=== PATIENT | male | born 1975 | race Caucasian/White ===

== ENCOUNTER 2020-09-19 00:48 | Inpatient (IN) | payer SELFPAY ==
[2020-09-19] MEDS ORDERED: Octreotide Acetate 50 MCG/ML AMP ONE (01:20)
[2020-09-19] MEDS ORDERED: Pantoprazole 40 MG VIAL ONE (01:20)
[2020-09-19] MEDS ORDERED: Octreotide Acetate 1,250 MCG in Sodium Chloride 0.9% 250 ML 250 ML IVPB SCH ×2 (01:30→10:15)
[2020-09-19] MEDS ORDERED: Pantoprazole 80 MG, Admixture Fee 1 EACH in Sodium Chloride 0.9% 100 ML IVPB SCH (01:30)
[2020-09-19 01:46] LABS: Hemoglobin 4.7 g/dL (14.0-18.0); Mean Corpuscular Hemoglobin 26.1 pg (27.0-31.0); Mean Corpuscular Volume 84.1 fL (78.0-98.0); Mean Platelet Volume 8.8 fL (7.4-10.4); Platelet Count 488 thou/uL (130-400); White Blood Cell (WBC) Count 20.7 thou/uL (4.8-10.8)
[2020-09-19 01:47] LABS: INR-International Normal Ratio 1.1; PTT 30.3 sec (22.9-36.1); Prothrombin Time 14.8 sec (12.0-14.7)
[2020-09-19 02:05] LABS: ALT (SGPT) 9 U/L (8-55); AST (SGOT) 17 U/L (5-34); Albumin 2.4 g/dL (3.5-5.0); Alkaline Phosphatase 76 U/L (40-110); Anion Gap 16 mmol/L (10-20); BUN (Urea Nitrogen) 15 mg/dL (8.9-20.6); Band 7 % (5-11); Bilirubin, Total 0.3 mg/dL (0.2-1.2); Calc. Creatinine Clearance 0 mL/min (70-130); Calcium 7.8 mg/dL (7.8-10.44); Carbon Dioxide 21 mmol/L (22-29); Chloride 105 mmol/L (98-107); Estimated GFR-MDRD Greater than 90; Globulin 2.3 g/dL (2.4-3.5); Glucose 129 mg/dL (70-105); Hypochromia MODERATE=16-30 cells (100X) (0-5/hpf); Lipase 181 U/L (8-78); Lymphocytes 15 % (21-51); MDiff Complete? YES; Monocytes 7 % (0-10); Neutrophil 71 % (42-75); Platelet Morphology Comment Appears Increased; Polychromasia MODERATE = 3-4 cells (100X) (0-2/hpf); Protein, Total 4.7 g/dL (6.0-8.3); Reflex for Review?? YES; Sodium 139 mmol/L (136-145)
--- NOTE | 2020-09-19 04:37 | PDOC.HHP ---
Hospitalist HPI - History of Present Illness gi bleeding History of Present Illness: Case of an 44y/o male with no pmhx of chronic conditions who comes to hospital due to GI bleeding. Patient states he was on his usual state of health until 1 week ago when he started with GI bleeding, patient states was a mixture of melena and hematochezia with associated lightheadedness. he stated he was hospitalize due to a HG of 2. He underwent an EGD and colonoscopy and they found nothing at that time and was discharge home after 6 prbcs. patient comes today after a similar presentation. he states that in afternoon while driving home he had an episode of seizure witness by his , has no hx of seizures, they got home and patient felt lightheaded and decided to take a nap. patient refers he was awaken due to a warm feeling in his legs and noted that he had what he described a massive amount of blood in his leg which was again a mixture of bright red blood and melena for which he decided to come to hospital for evaluation. At ed patient was evaluated and found with a HG of 4.7 for which hospitalist was called for further evaluation and management. patient denies fever nausea vomiting abdominal or chest pain does refer some chills Hospitalist ROS - Review of Systems All other systems reviewed; all pertinent +/- noted in HPI/Subj Hospitalist History - Past Surgical History Past Surgical History: reports: no pertinent history - Family History Family History: reports: no pertinent history - Social History Smoking Status: Never smoker Alcohol: reports: Occassional Drugs: reports: none Living Situation: With Family - Exam General Appearance: NAD, awake alert Eye: PERRL, anicteric sclera ENT: normocephalic atraumatic, no oropharyngeal lesions Neck: supple, symmetric, no JVD Heart: RRR, no murmur, no gallops, no rubs Respiratory: CTAB, no wheezes, no rales, no ronchi Gastrointestinal: soft, non-tender, non-distended, normal bowel sounds, no palpable masses, no hepatomegaly, no splenomegaly Extremities: no cyanosis, no clubbing, no edema Skin: normal turgor, no lesions, no rashes Neurological: cranial nerve grossly intact, normal sensation to touch, no weakness Musculoskeletal: normal tone, normal strength, no muscle wasting Psychiatric: normal affect, normal behavior, A&O x 3 Hospitalist Results - Labs Result Diagrams: 11/29/20 01:14 09/19/20 01:14 Lab results: WBC 20.7 thou/uL (4.8-10.8) H 09/19/20 01:14 Hgb 4.7 g/dL (14.0-18.0) L* 09/19/20 01:14 Hct 15.1 % (42.0-52.0) L 09/19/20 01:14 MCV 84.1 fL (78.0-98.0) 09/19/20 01:14 Plt Count 488 thou/uL (130-400) H 09/19/20 01:14 Band Neuts % (Manual) 7 % (5-11) 09/19/20 01:14 Sodium 139 mmol/L (136-145) 09/19/20 01:14 Potassium 3.0 mmol/L (3.5-5.1) L 09/19/20 01:14 Chloride 105 mmol/L (98-107) 09/19/20 01:14 Carbon Dioxide 21 mmol/L (22-29) L 09/19/20 01:14 BUN 15 mg/dL (8.9-20.6) 09/19/20 01:14 Creatinine 0.83 mg/dL (0.7-1.3) 09/19/20 01:14 Glucose 129 mg/dL (70-105) H 09/19/20 01:14 Lactic Acid 5.7 mmol/L (0.5-2.2) H* 09/19/20 01:14 Calcium 7.8 mg/dL (7.8-10.44) 09/19/20 01:14 Total Bilirubin 0.3 mg/dL (0.2-1.2) 09/19/20 01:14 AST 17 U/L (5-34) 09/19/20 01:14 ALT 9 U/L (8-55) 09/19/20 01:14 Alkaline Phosphatase 76 U/L (40-110) 09/19/20 01:14 Serum Total Protein 4.7 g/dL (6.0-8.3) L 09/19/20 01:14 Albumin 2.4 g/dL (3.5-5.0) L 09/19/20 01:14 Lipase 181 U/L (8-78) H 09/19/20 01:14 Hospitalist H&P A/P - Problem (1) GI bleeding Code(s): K92.2 - GASTROINTESTINAL HEMORRHAGE, UNSPECIFIED Status: Acute (2) Symptomatic anemia Code(s): D64.9 - ANEMIA, UNSPECIFIED Status: Acute (3) SIRS (systemic inflammatory response syndrome) Code(s): R65.10 - SIRS OF NON-INFECTIOUS ORIGIN W/O ACUTE ORGAN DYSFUNCTION Status: Acute - Plan Plan: 44y/o male with no apparent pmhx who present to hospital due to gi bleeding gi bleeding - hg of 4.7 with mixture of melena and BRR - will transfuse 4 prbcs - npo - gi consult - protonix iv q 12 -abd ct seen by me showed a possible mass in splenic flexure with associated inflammation, pending official report - will cover w zosyn symptomatic anemia - due to above - adalberto transfue 4 prbcs sirs -wbc in 20k + LA at 5.7 - likely secondary to anemia and hypoperfusion - will cover with zosyn
[2020-09-19 05:01] LABS: SARS-CoV-2 NAA Rapid Test Not Detected (NotDetected)
[2020-09-19 05:16] LABS: Lactic Acid 1.3 mmol/L (0.5-2.2)
[2020-09-19] MEDS ORDERED: Piperacillin/Tazobactam 3.375 GM VIAL ONE (05:56)
[2020-09-19] MEDS: Piperacillin/Tazobactam 3.375 GM in Sodium Chloride 0.9% 100 ML IVPB SCH ×4 (06:11→23:43)
[2020-09-19] MEDS: Sodium Chloride 0.9% 1,000 ML IV SCH ×3 (06:11→23:47)
[2020-09-19 06:57] LABS: Bilirubin Negative (Negative); Blood, Urine Negative (Negative); Clarity Clear (Clear); Glucose, Urine (Dipstick) Normal (Negative); Ketone, Urine Negative (Negative); Leukocyte Negative Leu/uL (Negative); Nitrite Negative (Negative); Protein, Urine (Dipstick) 10 mg/dL (Neg-Trace); Urobilinogen Normal mg/dL (Less than 2); pH, Urine 6.5 (5.0-9.0)
[2020-09-19 06:58] LABS: Specific Gravity, Urine 1.059 (1.002-1.036)
[2020-09-19 07:30] VITALS: BMI 24.7
--- NOTE | 2020-09-19 08:14 | CT ---
PRELIMINARY REPORT/[facility]/EMERGENCY AFTER HOURS PROCEDURE: EXAM: CT Abdomen and Pelvis with Intravenous Contrast CLINICAL HISTORY: PT HAD EPISODE OF RECTAL BLEEDING ABOUT AN HOUR AGO; PT REPORTS SIEZURE THIS MORNING FOR A FEW SECOND S; PT FEELS DIZZY AND LIKE HIS TOUNGE IS NUMB. TECHNIQUE: Axial computed tomography images of the abdomen and pelvis with intravenous contrast. CONTRAST: With; ISOVUE 370,100mL COMPARISON: None provided. FINDINGS: LUNG BASES: No basilar airspace consolidation or pleural effusion. LIVER: Unremarkable. GALLBLADDER AND BILE DUCTS: Unremarkable. No calcified stone. No ductal dilation. PANCREAS: Unremarkable. SPLEEN: Unremarkable. ADRENAL GLANDS: Unremarkable. KIDNEYS, URETERS, AND BLADDER: Unremarkable. No hydronephrosis or nephrolithiasis. No ureteral or bladder calculi. STOMACH AND BOWEL: There is bowel wall thickening with mesenteric stranding surrounding the mid to distal transverse col on, this is consistent with colitis. No formed fluid collection or free air is seen. No evidence of obstruction. The distal colon has a normal appearance.. APPENDIX: No CT evidence for appendicitis. PERITONEUM: There is inflammatory change and fluid around the mid to distal transverse colon.. No free air. LYMPH NODES: No lymphadenopathy. REPRODUCTIVE: Unremarkable as visualized. VASCULATURE: No aortic aneurysm. BONES: No fracture or suspicious osseous abnormality. ABDOMINAL WALL AND SOFT TISSUES: Unremarkable. IMPRESSION: Bowel wall thickening with inflammatory change in the mesentery and minimal fluid around the mid to d istal transverse colon. Moderate colitis is suspected. No formed abscess or free air. There is no evidence of intestinal or urinary tract obstruction.. ELECTRONICALLY SIGNED BY: Natali Matthews DO Sep 19, 2020 3:27:10 AM SLIVER C[employer]TER This report is intended for review by the ordering physician only, in accordance of law. If you recei ve this report in error, please call [facility] at [phone]. FINAL REPORT EMERGENCY AFTER HOURS CT ABDOMEN AND PELVIS WITH CONTRAS: FINDINGS/IMPRESSION: I DISAGREE with the findings and impression given in the preliminary report per [facility] phys ician. The preliminary reports states that the findings are consistent with colitis. However, there a re extensive inflammatory changes in the upper abdomen. These extend into the region of the melva hep atis and into the left aspect of the retroperitoneum. These surround the duodenum and the pancreatic head. There are inflammatory changes adjacent to the transverse colon at the stomach as well. There is an area of narrowing of the left portal vein with possible truncation. There are circumscrib ed collections adjacent to the pancreas measuring up to 1.8 cm in size, which are nonspecific. There is high density material in the rectum and sigmoid colon versus a rectal mass. There are nonobs tructing bilateral renal calcifications. The findings described above are concerning for acute pancreatitis. A perforated peptic ulcer or blee ding from a perforated peptic ulcer could also produce these findings. The high density material in the rectum could represent a rectal mass or blood. These findings were discussed with Dr. Guaman, who stated that the patient was admitted to have a ga stroenterology consult. A follow-up CT in 1-2 days is recommended to evaluate for the inflammatory ch anges involving the melva hepatis and pancreas, and evaluate the portal vasculature further. The high density material in the rectum should be correlate with a rectal exam to exclude a rectal mass. POS: EAA
[2020-09-19] MEDS: Pantoprazole 40 MG VIAL IVP SCH ×2 (08:33→20:11)
--- NOTE | 2020-09-19 08:44 | RAD ---
PORTABLE CHEST 1 VIEW: Date: 09/19/2020 Time: 0310 hours HISTORY: Hematochezia, melena. FINDINGS: The heart size is upper limits of normal. Lungs are well expanded without lobar consolidation, pneumo thoraces, or pleural effusions. IMPRESSION: No acute process. POS: ALANA
[2020-09-19 09:34] LABS: Hemoglobin 6.3 g/dL (14.0-18.0)
[2020-09-19] MEDS ORDERED: Iopamidol-370 76% 500 ML 1 ML ONE (09:38)
[2020-09-19 10:03] LABS: ALT (SGPT) 8 U/L (8-55); AST (SGOT) 14 U/L (5-34); Albumin 2.1 g/dL (3.5-5.0); Alkaline Phosphatase 65 U/L (40-110); Anion Gap 11 mmol/L (10-20); BUN (Urea Nitrogen) 13 mg/dL (8.9-20.6); Bilirubin, Total 0.6 mg/dL (0.2-1.2); Calc. Creatinine Clearance 144 mL/min (70-130); Carbon Dioxide 22 mmol/L (22-29); Chloride 110 mmol/L (98-107); Estimated GFR-MDRD Greater than 90; Glucose 137 mg/dL (70-105); Protein, Total 4.1 g/dL (6.0-8.3); Sodium 139 mmol/L (136-145)
--- NOTE | 2020-09-19 11:16 | CON ---
DATE OF CONSULTATION: 09/19/2020 REASON FOR CONSULTATION: GI bleeding and symptomatic anemia. HISTORY OF PRESENT ILLNESS: Wilber Vargas is a very pleasant 44-year-old man with no reported significant past medical or surgical history. He does smoke heavily, and he also reports that he drinks heavily. He will go through a 1.7 L bottle of [employer]'s every 3 to 4 days and this has been his pattern for a long time, it never caused any problems before. He has no chronic gastrointestinal symptoms. He was admitted to the hospital here overnight with symptomatic anemia and an episode of large melena. He reports that about 1 week ago, he was having fatigue and dyspnea on exertion and was hospitalized for 3 days at [facility] in [place]. He was found to be profoundly anemic with hemoglobin 2.8, received 6 units of blood, stabilized and underwent upper and lower endoscopy. He says that both of these examinations were unremarkable per his recollection. He recalls having had some imaging suggesting some indeterminate spot somewhere in the abdomen that was going to be followed up later. He was discharged 4 days ago, feeling okay. Then 2 days ago, he noticed a little bit of dark stool. He did not think much of it. Then yesterday, he had what sounds like a syncopal episode with diaphoresis, was feeling a lot more drowsy and then passed a large bowel movement which he says was jet black with reddish tinge. He presented to the hospital here, where hemoglobin was found to be 4.7. He has remained hemodynamically stable throughout. He received 3 units of blood and hemoglobin came up to 6.3 this morning. He has actually not passed any more melena or any bowel movements since arrival last night. BUN is only 15 with creatinine 0.83. Lipase is mildly elevated to 181, but LFTs are normal. Interestingly, he had a CT of the abdomen and pelvis on admission. The CT demonstrates extensive inflammatory changes in the upper abdomen around the duodenum and pancreatic head, also involving the transverse colon and stomach. There are some circumferential fluid collections adjacent to the pancreatic head measuring up to 1.8 cm and the findings are felt to represent either acute pancreatitis or possible sequela of perforated ulcer. There is high density material in the rectum as well. Considered to probably be blood versus rule out mass. The patient is currently feeling a lot better after transfusion. He never had any abdominal pain throughout all of this. REVIEW OF SYSTEMS: Full review of systems including constitutional, head, eyes, ears, nose, throat, GI, , cardiovascular, respiratory, musculoskeletal, neurologic systems is negative except as noted in the HPI. PAST MEDICAL HISTORY: Heavy alcohol use, tobacco use, severe anemia, hospitalized earlier this week at [facility] in [facility] with negative endoscopic workup. ALLERGIES: NO KNOWN DRUG ALLERGIES. OUTPATIENT MEDICATIONS: None. INPATIENT MEDICATIONS: 1. Pantoprazole 40 mg IV twice daily. 2. Octreotide drip. 3. Zosyn 3.375 g q.6 hours. SOCIAL HISTORY: The patient does smoke heavily. He also drinks alcohol heavily. He will go through a 1.7 L bottle of [employer]'s whiskey every 3 to 4 days. No drug use. FAMILY HISTORY: Noncontributory. PHYSICAL EXAMINATION: VITAL SIGNS: Temperature 98.3, pulse 92, blood pressure 110/68, 96% oxygen saturation on room air. GENERAL: A 44-year-old man, sitting up in bed comfortably. He is pale, but in no distress. MENTAL: Alert and fully oriented. Pleasant, conversational. Can give a detailed coherent history with good specificity. SKIN: He is pale. No jaundice. No rashes were palpable. EYES: No scleral icterus. Extraocular movements intact. ENT: Mucous membranes moist. No oral lesions. LYMPH: No submandibular or supraclavicular lymphadenopathy. THYROID: Nontender to palpation. HEART: Regular rate and rhythm. LUNGS: Clear to auscultation bilaterally. ABDOMEN: Bowel sounds present. Soft and nontender to deep palpation throughout the abdomen. No guarding or rebound tenderness. EXTREMITIES: No peripheral edema. VESSELS: Radial pulses 2+ bilaterally. NEURO: Cranial nerves 2 through 12 intact bilaterally. No focal deficits. RECTAL: Digital rectal exam was performed. I did not palpate any nodularity or mass lesion or any retained stool in the rectal vault. There is no blood on withdrawal of the glove. LABORATORY STUDIES: Hemoglobin is 4.7; MCV 84.1; after 3 units RBCs, hemoglobin has come up to 6.3; WBC 20.7; platelets 488. Sodium 139, potassium 3.0, BUN 15, creatinine 0.83, total bilirubin 0.3, alkaline phosphatase 76, AST 17, ALT 9, albumin 2.4. Urinalysis negative. COVID PCR negative. INR 1.1. Lactic acid initially 5.7, now down to 1.3. Lipase mildly elevated to 181. IMAGING STUDIES: Chest x-ray showed no acute processes. CT of the abdomen and pelvis demonstrated extensive inflammatory changes in the upper abdomen around the duodenum and pancreatic head, also involving the transverse colon in the stomach. There is some circumscribed fluid collections adjacent to the pancreatic head measuring up to 1.8 cm. This is felt to represent acute pancreatitis versus sequela of perforated ulcer. There is some high density material in the rectum and sigmoid colon felt likely to represent blood, versus mass lesion. ASSESSMENT/PLAN: 1. Melena, acute. 2. Acute blood loss anemia, severe, symptomatic. 3. Abnormal CT scan, suggesting upper abdominal inflammatory changes suggestive of pancreatitis versus sequela of perforated ulcer. 4. Recent hospitalization at [facility]. Evidently, with negative esophagogastroduodenoscopy and colonoscopy within the past week. The patient's presentation is very puzzling. He has evidence of overt gastrointestinal bleeding with severe anemia, yet is very stable hemodynamically. BUN is not elevated and he evidently had negative esophagogastroduodenoscopy and colonoscopy in [place] within the past week. The CT findings are very compelling, suggesting either acute pancreatitis with fluid collections, versus sequela of perforated gastric ulcer. But the patient really is not having any abdominal pain or peritoneal signs to suggest either of these processes, pancreatitis would not explain the bleeding or anemia, and again, he evidently had a negative endoscopy within the past week. I think that given the severe hemoglobin decline and now overt bleeding, we need to proceed with esophagogastroduodenoscopy urgently today just to rule out upper gastrointestinal bleeding lesion, evaluate for something that might have been missed last week. We will get this done emergently today. Continue with octreotide and pantoprazole drips in the meantime. I think he will likely need more blood, continue to monitor H and H and transfuse as needed. If the esophagogastroduodenoscopy is normal, I do not see any way around administering bowel preparation tonight for repeat colonoscopy tomorrow. The patient will also need repeat CT imaging in the next couple of days. Thank you for the consultation. Please call anytime with questions or concerns. Job ID: [id number]
--- NOTE | 2020-09-19 11:52 | OP ---
DATE OF PROCEDURE: 09/19/2020 STAFF EDUCATOR SURGEON: None. PROCEDURE PERFORMED: Esophagogastroduodenoscopy, diagnostic. INDICATIONS: 1. Melena. 2. Acute blood loss anemia, severe, symptomatic. 3. Abnormal CT scan, demonstrating some peripancreatic fluid collections. MEDICATIONS: See Anesthesia record. FINDINGS: After discussion of the risks, benefits, and alternatives of the procedure, informed consent was obtained and witnessed. Pre-endoscopic cardiopulmonary examination was satisfactory. Time-out was performed before sedation was achieved. Sedation was achieved with Anesthesia assistance in the endoscopy unit. The patient was endotracheally intubated under general anesthesia. A Pentax adult upper endoscope was placed into the oropharynx and passed through the cricopharyngeus under direct visualization. The esophageal mucosa appeared normal throughout. There were no esophageal varices. The endoscope was advanced into the stomach. Forward and retroflexed views of the entire gastric mucosa were obtained. There was no evidence of any old blood or active bleeding in the stomach. There were no gastric varices. No ulcerations or erosions. The gastric mucosa appeared normal. The endoscope was advanced through the pylorus and into the first and second portions of the duodenum. The duodenal bulb appeared normal. The mucosa of the second and third portions of the duodenum also appeared normal. However, there was some faint fresh blood within the second and third portions of the duodenum. On careful extensive view with the forward endoscope, I was unable to locate any explanation for the blood in this area; therefore, the upper endoscope was completely withdrawn and a side-viewing duodenoscope was obtained. This was passed down the esophagus and into the second portion of the duodenum. The ampulla was brought into view with the endoscope in the short position. The ampulla itself appears normal, but there was clearly slow but persistent oozing of red blood from the ampullary orifice. This area was watched for several minutes and though the bleeding was slow, it remained persistent. I cannot really tell if this represents hemobilia or hemosuccus pancreaticus. At this point, the endoscope was completely withdrawn and the patient allowed to recover. The patient tolerated the procedure well. There were no immediate postprocedure complications. IMPRESSION: 1. Active bleeding from the ampullary orifice, representing either hemobilia or hemosuccus pancreaticus. 2. Otherwise normal EGD. RECOMMENDATION: 1. Continue to trend H and H, and transfuse as needed. 2. I recommend urgent transfer to a tertiary center with capability for endoscopic ultrasound as well as mesenteric arteriography with coil embolization. We will start making calls to see about transfer today. 3. Clear liquid diet for now. Job ID: [id number]
[2020-09-19] MEDS: Octreotide Acetate 1,250 MCG in Sodium Chloride 0.9% 250 ML 250 ML IVPB SCH ×2 (12:47→21:54)
[2020-09-19] MEDS ORDERED: Ondansetron PF 4 MG/2 ML Vial ONE (12:59)
[2020-09-19] MEDS ORDERED: Succinylcholine 200 MG/10 ml SYRINGE FS ONE (12:59)
[2020-09-19] MEDS ORDERED: PROPOFOL 200 MG/20 ML VIAL ONE (12:59)
--- NOTE | 2020-09-19 16:43 | CON ---
DATE OF CONSULTATION: 09/19/2020 HISTORY OF PRESENT ILLNESS: Wilber Vargas is a gentleman, who was recently worked up for GI blood loss in [place]. No cause was found. Apparently, he presented with hemoglobin of 2. In this admission, he has gone down for endoscopy and was found to be bleeding from his ampulla. CT scanning per my discussion with Dr. Singleton has suggested that some point in time he has had pancreatitis, although his lipase is now normal. He is a fairly heavy drinker. We have asked him if he thought he worked on stopping drinking, his answer was "I doubt it." PAST MEDICAL HISTORY: Remarkable for heavy smoking and drinking. FAMILY HISTORY: Negative for lung disease in early age. REVIEW OF SYSTEMS: Otherwise negative. He has not thrown up any blood and denies passing bright red blood recently. PHYSICAL EXAMINATION: VITAL SIGNS: He is afebrile, respiratory rate is 20, oximetry is 98, blood pressure 123/84. HEAD AND NECK: Unremarkable. He is not icteric. Extraocular movements are full. NECK: Without lymphadenopathy. LUNGS: Clear. HEART: Regular rhythm. ABDOMEN: Soft and nontender. EXTREMITIES: Without clubbing, cyanosis, or edema. LABORATORY DATA: Albumin is 2.1. Electrolytes are normal. Creatinine is normal. Hemoglobin is 4.7 at 1 o'clock this morning and 6.3 at 9 o'clock this morning. His coags are normal. COVID screen was negative. IMPRESSION: Ampullary bleeding of unclear etiology. I am told that we do not have the capability of working this up here, so transfer arrangements to [facility] currently ongoing. He is stable for transfer in my opinion. This is a 70 min consult with greater than 50% of the time spent on the unit with coordination of care. Job ID: [id number] MTDD
[2020-09-19] MEDS ORDERED: Lorazepam 2 MG/ML VIAL SLOW IVP PRN (16:52)
--- NOTE | 2020-09-19 16:56 | PDOC.HOSPP ---
- Subjective Encounter Date: 09/19/20 Encounter Time: 16:45 Subjective: f/u for GI bleed/symptomatic severe anemia s/p 4u PRBC's and EGD showing hemobilia of unclear source. Plans for transfer to higher level at [facility] for endoscopic US and potential arterial embolization. Pt states he feels better s/p transfusions. - Objective Vital Signs & Weight: Vital Signs (12 hours) Temp Pulse Resp BP Pulse Ox 09/19/20 14:45 98.2 F 77 22 H 113/85 98 09/19/20 14:30 98.6 F 87 23 H 123/84 97 09/19/20 14:17 98.4 F 80 20 123/84 98 09/19/20 12:30 98.4 F 86 14 170/87 H 100 09/19/20 12:18 98.5 F 89 22 H 108/70 96 09/19/20 12:00 98.5 F 09/19/20 07:31 98 Weight Weight 177 lb 4.026 oz Most Recent Monitor Data Heart Rate from ECG 80 NIBP 126/84 NIBP BP-Mean 98 Respiration from ECG 21 SpO2 97 I&O: 09/18/20 09/19/20 09/20/20 06:59 06:59 06:59 Intake Total 465 Output Total 901 Balance -436 Result Diagrams: 09/19/20 09:24 09/19/20 09:24 Additional Labs: Microbiology 09/19/20 01:35 Stool - Pending Stool Occult Blood (KLEBER) - Final Laboratory Tests 09/19/20 09/19/20 09/19/20 01:14 01:14 01:14 WBC 20.7 H Hgb 4.7 L* INR Potassium 3.0 L Lactic Acid 5.7 H* Albumin 2.4 L Lipase 181 H SARS-CoV-2 Rap RNA(RT-PCR) 09/19/20 09/19/20 09/19/20 01:14 03:30 04:51 WBC Hgb INR 1.1 Potassium Lactic Acid 1.3 Albumin Lipase SARS-CoV-2 Rap RNA(RT-PCR) Not Detected 09/19/20 09:24 WBC Hgb INR Potassium Lactic Acid Albumin 2.1 L Lipase SARS-CoV-2 Rap RNA(RT-PCR) Radiology Reviewed by me: Yes (EGD - hemobilia, no ulcers) EKG Reviewed by me: Yes (Tele - SR) Hospitalist ROS - Medication Medications: Active Medications Generic Name Dose Route Start Last Admin Trade Name Freq PRN Reason Stop Dose Admin Sodium Chloride 1,000 mls @ 100 mls/hr 09/19/20 04:45 09/19/20 13:35 Normal Saline 0.9% IV 1,000 mls .Q10H ISIDORO Administration Piperacillin Sod/Tazobactam 100 mls @ 200 mls/hr 09/19/20 06:00 09/19/20 12:30 Sod 3.375 gm/ Sodium Chloride IVPB 100 mls Q6HR ISIDORO Administration Octreotide Acetate 1,250 mcg/ 251.25 mls @ 10.05 mls/hr 09/19/20 12:30 09/19/20 12:47 Sodium Chloride IVPB 251.25 mls INF ISIDORO Administration Pantoprazole Sodium 40 mg 09/19/20 09:00 09/19/20 08:33 Pantoprazole 40 Mg Vial IVP Not Given BID ISIDORO - Exam General Appearance: NAD, awake alert Eye: PERRL, anicteric sclera ENT: normocephalic atraumatic, no oropharyngeal lesions Neck: supple, symmetric, no JVD, no thyromegaly, no lymphadenopathy Heart: RRR, no murmur, no gallops, no rubs, normal peripheral pulses Heart - other findings: S1, S2 Respiratory: CTAB, no wheezes, no rales, no ronchi, normal chest expansion, no tachypnea Gastrointestinal: soft, non-tender, non-distended, normal bowel sounds, no palpable masses Extremities: no cyanosis, no clubbing, no edema Skin: normal turgor, no lesions Neurological: cranial nerve grossly intact, no new deficit Neurological - other findings: mlld tremors noted Musculoskeletal: normal tone, normal strength Psychiatric: normal affect, A&O x 3 Hosp A/P (1) GI bleeding Code(s): K92.2 - GASTROINTESTINAL HEMORRHAGE, UNSPECIFIED Status: Acute Plan: Apparent hemobilia with ? pancreatic hemorrhagic source or more proximal, s/p 4u PRBC's with 5th unit transfusing currently, Protonix/Octreotide IV currently (2) Symptomatic anemia Code(s): D64.9 - ANEMIA, UNSPECIFIED Status: Acute Plan: See above, serial H/H (3) SIRS (systemic inflammatory response syndrome) Code(s): R65.10 - SIRS OF NON-INFECTIOUS ORIGIN W/O ACUTE ORGAN DYSFUNCTION Status: Acute Plan: Likely due to severe anemia, Zosyn empirically (4) Alcohol abuse Code(s): F10.10 - ALCOHOL ABUSE, UNCOMPLICATED Status: Chronic Plan: Add Ativan 1mg IV q4h PRN withdrawal sx (5) Hypokalemia Code(s): E87.6 - HYPOKALEMIA Status: Acute Plan: Improved, KCL replacement and serial K+ monitoring - Plan continue antibiotics, social services technician, DVT proph w/SCDs Coordinating for transfer to [facility] in [place] for higher level of care, likely needing endoscopic US/arterial embolization Serial H/H Add Ativan 1mg IV q4h PRN withdrawal Appreciate GI assistance Continue IVF's Clear Liquids
[2020-09-19 17:14] VITALS: BP 114/81
[2020-09-19 17:44] LABS: Hemoglobin 8.4 g/dL (14.0-18.0)
[2020-09-19 21:25] LABS: Hemoglobin 8.2 g/dL (14.0-18.0)
[2020-09-20 00:47] VITALS: TEMP 98.6
[2020-09-20 04:21] LABS: #Basophils 0.1 thou/uL (0.0-0.2); #Eosinphils 0.3 thou/uL (0.0-0.7); #Monocytes 0.9 thou/uL (0.11-0.59); #Neutrophils 8.5 thou/uL (1.40-6.50); %Basophils 0.6 % (0.0-1.0); %Eosinophils 2.5 % (0.0-10.0); %Lymphocytes 17.2 % (21.0-51.0); %Monocytes 7.5 % (0.0-10.0); %Neutrophils 72.2 % (42.0-75.0); Mean Corpuscular HGB CONC 32.5 g/dL (32.0-36.0); Mean Corpuscular Hemoglobin 27.9 pg (27.0-31.0); Mean Corpuscular Volume 85.9 fL (78.0-98.0); Mean Platelet Volume 8.7 fL (7.4-10.4); Platelet Count 275 thou/uL (130-400); RBC Distribution Width 19.1 % (11.5-14.5); Red Blood Cell (RBC) Count 3.22 mill/uL (4.70-6.10); White Blood Cell (WBC) Count 11.8 thou/uL (4.8-10.8)
[2020-09-20 04:54] LABS: ALT (SGPT) 8 U/L (8-55); AST (SGOT) 14 U/L (5-34); Albumin 2.2 g/dL (3.5-5.0); Alkaline Phosphatase 67 U/L (40-110); Anion Gap 9 mmol/L (10-20); BUN (Urea Nitrogen) 11 mg/dL (8.9-20.6); Calc. Creatinine Clearance 128 mL/min (70-130); Calcium 7.2 mg/dL (7.8-10.44); Carbon Dioxide 24 mmol/L (22-29); Chloride 108 mmol/L (98-107); Estimated GFR-MDRD Greater than 90; Globulin 2.3 g/dL (2.4-3.5); Glucose 104 mg/dL (70-105); Lipase 54 U/L (8-78); Potassium 3.5 mmol/L (3.5-5.1); Protein, Total 4.5 g/dL (6.0-8.3); Sodium 137 mmol/L (136-145)
[2020-09-20] MEDS: Piperacillin/Tazobactam 3.375 GM in Sodium Chloride 0.9% 100 ML IVPB SCH (05:56)
--- NOTE | 2020-09-21 03:13 | DIS ---
DATE OF ADMISSION: 09/19/2020 DATE OF DISCHARGE: 09/20/2020 DISCHARGE DIAGNOSES: 1. Acute gastrointestinal bleeding, status post 5 units of packed red blood cells. 2. Symptomatic severe anemia. 3. Systemic inflammatory response syndrome. 4. Alcohol abuse. 5. Hypokalemia. CONSULTATIONS: 1. Dr. Cervantes with Pulmonology Critical Care Service. 2. Dr. Jerome Singleton with GI Service. PERTINENT LABORATORY AND X-RAY FINDINGS: Potassium ranged between 3.0 to 4.0. Lactic acid level ranged between 1.3 to 5.7. LFTs within normal limits. Albumin ranged between 2.1 to 2.4. Lipase ranged between 54 to 181. CBC showed a white blood cell count ranging between 11.8 to 20.7, hemoglobin ranged between 4.7 to 9.0. PT 14.8, INR 1.1, PTT 30.3. COVID-19 PCR not detected on 09/19/2020. Blood cultures x2 dated 09/19/2020, showed no growth to date. Stool Hemoccult dated 09/19/2020 positive x1. Portable chest x-ray dated 09/19/2020, showed no acute cardiopulmonary process. CT of the abdomen and pelvis dated 09/19/2020, showed extensive inflammatory changes in the upper abdomen extending into the region of the melva hepatis and into the left aspect of the retroperitoneum. Involvement of the duodenum and pancreatic head. Inflammatory changes adjacent to the transverse colon and gastric region. EGD dated 09/19/2020, showed active bleeding from the ampullary orifice representing either hemobilia or hemosuccus pancreaticus. HOSPITAL COURSE: The patient was initially admitted to the Critical Care Unit after presenting with a hemoglobin of 4.7, with a mixture of melena and bright red blood per rectum. The patient received initial 4 units of packed red blood cells and placed on Protonix intravenously. Patient also received empiric antibiotics with Zosyn and evaluated by Gastroenterology Service. Patient was initiated on an octreotide infusion and underwent EGD evaluation showing evidence of hemobilia of unclear significance. Recommendations were to proceed with endoscopic ultrasound as well as potential arterial embolization procedure at a higher level of care. The patient was given an additional 1 unit of packed red blood cells for a total of 5 units during this hospital course. Serial H and H monitoring showed hemoglobin ranging between 4.7 to 9.0. Patient was excepted to transferred to [facility] in [place], [place], for higher level of care and evaluation. The patient discharge to [facility] on 09/20/2020. I examined the patient at time of discharge at which point the patient verbalized understanding and agreement for transfer. DISCHARGE MEDICATIONS: 1. Normal saline 100 mL/h. 2. Protonix 40 mg IV b.i.d. 3. Zosyn 3.375 g IV q.6 hours. 4. Octreotide infusion. FOLLOWUP: The patient will follow up at [place], [place], on 09/20/2020. CONDITION ON DISCHARGE: Guarded. ACTIVITY: Ad-dominga. DIET: Clear liquids. CODE STATUS: Full. DISPOSITION: Transfer to [place], [place], on 09/20/2020. Job ID: [id number]
--- NOTE | 2020-09-22 05:40 | PQF ---
CLINICAL DOCUMENTATION CLARIFICATION FORM: Dear : PARDEEP KHALIL DO Date / Time: 09/22/2020 Please exercise your independent, professional judgment in responding to the clarification form. Clinical indicators are provided on the bottom of this form for your review Please check appropriate box(es): [ ] Sepsis due to: [ ] Severe sepsis with associated acute organ dysfunction: [ ] Acute Respiratory Failure [ ] Acute Kidney injury w/o ATN [ ] Acute Kidney Injury w ATN [ ] Encephalopathy (metabolic) (septic) [ ] Disseminated Intravascular Coagulopathy (DIC) [ ] Hepatic Failure [ ] Additional/Other: please specify: [ ] Septic Shock [ ] Localized infection without sepsis [x ] SIRS due to non-infectious process (please specify etiology) _GI bleed [ ] with organ dysfunction [ ] without organ dysfunction [ ] Other diagnosis (Please specify if any) [ ] Unable to determine In addition, please specify: Present on Admission (POA): [ x ] Yes [ ] No [ ] Unable to determine Physician Signature: Date/Time: For continuity of documentation, please document condition throughout progress notes and discharge summary. Thank You. To be completed by CDI/Coding staff for physician review: Present Clinical Indicators - Signs / Symptoms / Labs Results and Location in Medical Record [ ] Altered mental status, increased confusion, obtunded [x] Tachycardiac, hypotensive ED provider report on 09/21 [x] Respiratory rate >20/min, hypoxemia, and or hypercapnia RR-23 vitals on 09/19 [ ] Heart Rate/Tachycardia (>90 bpm), SBP<100mmHg [x] Hemorrhagic shock, sepsis ED provider report on 09/21 [x] Metabolic acidosis Lactic Acid >2mmol/L OR 36mg/dL, Lactic acid-5.7 Laboratory on 09/19 [ ] Oliguria , increase BUN/Cr, decreased GFR, elevated liver enzymes [ ] Coag abnormalities, thrombocytopenia plts <100k [ ] Shock-hypotension resistant to IV fluid boluses [x] WBC count (>12,000/mm^4 or <4000/mm^3 or 70% neuts, 10% bands) Wbc-20.7 Laboratory on 09/19 [x] Systemic inflammatory response syndrome Discharge summary on 09/20 [ ] Positive blood cultures Present Risk Factors Results and Location in Medical Record [ ] Infection/Bacteremia [ ] Pneumonia, UTI, infected wound, gangrenous gall bladder Diabetes or Cancer [ ] Surgery / surgical instrumentation / trauma Ruptured/perforated bowel, ruptured appendix [ ] Immunosuppression [x] Advancing Age-44 yrs ED provider report on 09/21 Present Treatments Results and Location in Medical Record [ ] Initiation Sepsis Protocol ICU [ ] Daily CBC, blood/sputum/wound cx [ ] ID Consult [x] Levaquin 750 mg PO Medication on 09/19 [ ] IV ?uids [ ] Vasopressors, meds [ ] Consultants; ID, GI, Pulmonary, Hematology CDS/Profile Mill Operator Tape Control Signature: AAS Phone #: Date/Time: 09/22/2020 This is a permanent part of the Medical Record [facility]
--- NOTE | 2020-09-25 09:46 | EKG ---
Test Reason : Blood Pressure : / mmHG Vent. Rate : 115 BPM Atrial Rate : 115 BPM P-R Int : 128 ms QRS Dur : 070 ms QT Int : 354 ms P-R-T Axes : 072 060 035 degrees QTc Int : 489 ms Sinus tachycardia Left atrial enlargement Septal infarct , age undetermined Abnormal ECG Confirmed by CYNDEE SEN, KOSTA Gaines ([id number]), features editor GAGANDEEP CHAUHAN ([id number]) on 09/25/2020 9:46:11 AM Referred By: Confirmed By:KOSTA COTTER MD
== END 2020-09-20 08:55 | disposition short-term general hospital (02) | DRG 444 ==
LOC: ERS 00:48 → ERHOLD 02:44 → CCU 06:45
PROVIDERS: ADMIT Internal Medicine; ATTEND Internal Medicine
PROC: 0DJ08ZZ Inspection of Upper Intestinal Tract, Via Natural or Artificial Opening Endoscopic (ICD-10-PCS; principal; 2020-09-19)
PROC: 30233N1 Transfusion of Nonautologous Red Blood Cells into Peripheral Vein, Percutaneous Approach (ICD-10-PCS; 2020-09-19)
DX: K83.8 Other specified diseases of biliary tract (principal); R57.8 Other shock; K92.2 Gastrointestinal hemorrhage, unspecified; D62 Acute posthemorrhagic anemia; R65.10 Systemic inflammatory response syndrome (SIRS) of non-infectious origin without acute organ dysfunction; E87.6 Hypokalemia; F10.10 Alcohol abuse, uncomplicated; Z20.828 Contact with and (suspected) exposure to other viral communicable diseases
CPT/HCPCS: 36415; 36430; 71045; 74177; 80053; 81003; 82274; 83605; 83690; 85025; 85060; 85610; 85730; 86850; 86900; 86901; 87040; 93005; 96365; 96366; 96367; 96368; 96376; 99292; C9113; J1956; J2354; J2405; J2543; J2704; J3490; J7050; P9016; Q9967; U0002

== ENCOUNTER 2021-01-12 12:19 | Inpatient (IN) | payer SELFPAY ==
[2021-01-12] MEDS ORDERED: Iopamidol 370 76% 100 ML VIAL ONE (13:59)
[2021-01-12] MEDS ORDERED: Iopamidol 370 76% 50 ML VIAL FS ONE (13:59)
[2021-01-12 14:13] LABS: #Eosinphils 0.4 thou/uL (0.0-0.7); #Lymphocytes 1.4 thou/uL (1.20-3.40); #Monocytes 0.6 thou/uL (0.11-0.59); #Neutrophils 8.2 thou/uL (1.40-6.50); %Basophils 0.1 % (0.0-1.0); %Eosinophils 3.5 % (0.0-10.0); %Lymphocytes 12.9 % (21.0-51.0); %Monocytes 5.5 % (0.0-10.0); %Neutrophils 77.9 % (42.0-75.0); Hemoglobin 12.1 g/dL (14.0-18.0); Mean Corpuscular HGB CONC 32.5 g/dL (32.0-36.0); Mean Corpuscular Hemoglobin 26.1 pg (27.0-31.0); Mean Corpuscular Volume 80.2 fL (78.0-98.0); Mean Platelet Volume 7.3 fL (7.4-10.4); Platelet Count 573 thou/uL (130-400); RBC Distribution Width 16.3 % (11.5-14.5); Red Blood Cell (RBC) Count 4.64 mill/uL (4.70-6.10); White Blood Cell (WBC) Count 10.5 thou/uL (4.8-10.8)
[2021-01-12 14:41] LABS: ALT (SGPT) 8 U/L (8-55); AST (SGOT) 15 U/L (5-34); Albumin 2.8 g/dL (3.5-5.0); Alkaline Phosphatase 133 U/L (40-110); Anion Gap 12 mmol/L (10-20); BUN (Urea Nitrogen) 11 mg/dL (8.9-20.6); Bilirubin, Total 0.3 mg/dL (0.2-1.2); Calc. Creatinine Clearance 0 mL/min (70-130); Calcium 8.3 mg/dL (7.8-10.44); Carbon Dioxide 25 mmol/L (22-29); Chloride 103 mmol/L (98-107); Globulin 3.2 g/dL (2.4-3.5); Glucose 87 mg/dL (70-105); Lipase 452 U/L (8-78); Potassium 4.5 mmol/L (3.5-5.1); Sodium 135 mmol/L (136-145)
[2021-01-12 14:58] LABS: Bacteria/HPF None Seen HPF (None Seen); Bilirubin Negative (Negative); Blood, Urine Negative (Negative); Clarity Turbid (Clear); Glucose, Urine (Dipstick) Normal (Negative); Ketone, Urine Negative (Negative); Leukocyte 75 Leu/uL (Negative); Nitrite Negative (Negative); Protein, Urine (Dipstick) 50 mg/dL (Neg-Trace); RBC/HPF 0-3 HPF (0-3); Squamous Epithelial None Seen HPF (0-3)
[2021-01-12] MEDS ORDERED: Acetaminophen 650 MG Suppository PR PRN (16:13)
[2021-01-12] MEDS ORDERED: Ondansetron PF 4 MG/2 ML Vial IVP PRN (16:13)
[2021-01-12] MEDS ORDERED: Morphine 4 MG/ML VIAL SLOW IVP PRN (16:16)
[2021-01-12] MEDS ORDERED: Morphine 2 MG/ML VIAL SLOW IVP PRN (16:16)
[2021-01-12 17:16] LABS: PTT 34.2 sec (22.9-36.1); Prothrombin Time 13.6 sec (12.0-14.7)
[2021-01-12 17:34] LABS: Iron 30 ug/dL (65-175); Iron Binding Capacity, Total 296 mcg/dL (261-462)
[2021-01-12 17:57] LABS: Vitamin B12 Greater than 2000 pg/mL (211-911)
[2021-01-12 19:59] VITALS: BMI 24.7
[2021-01-12] MEDS: Famotidine/PF 20 mg/2ml Vial SLOW IVP SCH (20:36)
[2021-01-13 06:41] LABS: #Basophils 0.1 thou/uL (0.0-0.2); #Eosinphils 0.4 thou/uL (0.0-0.7); #Lymphocytes 1.4 thou/uL (1.20-3.40); #Monocytes 0.6 thou/uL (0.11-0.59); #Neutrophils 5.3 thou/uL (1.40-6.50); %Basophils 0.8 % (0.0-1.0); %Eosinophils 5.4 % (0.0-10.0); %Lymphocytes 17.9 % (21.0-51.0); %Monocytes 7.1 % (0.0-10.0); %Neutrophils 68.8 % (42.0-75.0); Hemoglobin 10.6 g/dL (14.0-18.0); Mean Corpuscular HGB CONC 30.8 g/dL (32.0-36.0); Mean Corpuscular Hemoglobin 24.9 pg (27.0-31.0); Mean Corpuscular Volume 80.9 fL (78.0-98.0); Mean Platelet Volume 7.2 fL (7.4-10.4); Platelet Count 542 thou/uL (130-400); RBC Distribution Width 16.3 % (11.5-14.5); Red Blood Cell (RBC) Count 4.25 mill/uL (4.70-6.10); White Blood Cell (WBC) Count 7.8 thou/uL (4.8-10.8)
[2021-01-13 07:06] LABS: ALT (SGPT) 7 U/L (8-55); AST (SGOT) 11 U/L (5-34); Albumin 2.6 g/dL (3.5-5.0); Alkaline Phosphatase 116 U/L (40-110); Anion Gap 15 mmol/L (10-20); BUN (Urea Nitrogen) 13 mg/dL (8.9-20.6); Bilirubin, Total 0.4 mg/dL (0.2-1.2); Calc. Creatinine Clearance 139 mL/min (70-130); Carbon Dioxide 21 mmol/L (22-29); Chloride 102 mmol/L (98-107); Globulin 2.7 g/dL (2.4-3.5); Glucose 79 mg/dL (70-105); Protein, Total 5.3 g/dL (6.0-8.3); Sodium 134 mmol/L (136-145)
[2021-01-13 07:51] LABS: Hemoglobin 10.7 g/dL (14.0-18.0); Mean Corpuscular HGB CONC 31.1 g/dL (32.0-36.0); Mean Corpuscular Hemoglobin 25.2 pg (27.0-31.0); Mean Platelet Volume 7.4 fL (7.4-10.4); Platelet Count 543 thou/uL (130-400); RBC Distribution Width 16.2 % (11.5-14.5); Red Blood Cell (RBC) Count 4.26 mill/uL (4.70-6.10); White Blood Cell (WBC) Count 8.1 thou/uL (4.8-10.8)
[2021-01-13 07:52] LABS: Reticulocyte Count 1.9 % (0.5-1.5)
[2021-01-13] MEDS: Famotidine/PF 20 mg/2ml Vial SLOW IVP SCH (08:20)
[2021-01-13 08:26] LABS: Band 3 % (5-11); Eosinophils 5 % (0-10); Lymphocytes 18 % (21-51); MDiff Complete? YES; Monocytes 7 % (0-10); Neutrophil 67 % (42-75); Platelet Morphology Comment Appears Increased; Polychromasia SLIGHT = 2-3 cells (100X) (0-2/hpf)
[2021-01-13 12:12] LABS: Fluid, Protein 3.6 g/dL (Not Available)
[2021-01-13 12:26] LABS: RBC Count-Automated (BF) 28782 /cu.mm; WBC/Nucleated-Auto (BF) 363 uL
[2021-01-13 12:46] LABS: Body Fluid Source Ascites Body Fluid; Clarity Cloudy/Turbid (Clear); Tube # EDTA
[2021-01-13 12:47] LABS: BF Color Red
[2021-01-13 12:49] LABS: BF Segmented Neutrophils 23 %; Cell Count Non Hematic 64 %; Eosinophils 1 %; Lymphocytes 12 %
[2021-01-13 15:14] LABS: Hep C IgG Ab Non-Reactive (NonReactive); Hep C Index 0.13 S/CO (0-0.79)
[2021-01-13 15:24] LABS: HBSAg Index 0.21 S/CO (0-0.99); HIV (1/2) Antibody/Antigen Non-Reactive (NonReactive); HIV 1/2 INDEX 0.08 S/CO (<1.00); Hep A IgM AB Non-Reactive (NonReactive); Hep A IgM S/CO 0.09 S/CO (0-0.79); Hep B Surf Ag Non-Reactive S/CO (NonReactive)
[2021-01-13 17:05] LABS: SARS-CoV-2 PCR by NAA Not Detected (NotDetected)
[2021-01-13 18:23] LABS: HBCM Index 0.06 S/CO (0-0.79); HBSAB Concentration Less than 8.00 mIU/mL; Hep B Core Total Ab Non-Reactive (NonReactive); Hep B Core Total Index 0.28 S/CO (0-0.79); Hep B Surf AB Non-Reactive (NonReactive); Hepatitis B Core IgM Abs Non-Reactive (NonReactive)
[2021-01-13] MEDS: Sodium Chloride 0.9% 1,000 ML IV SCH (19:13)
[2021-01-14 07:30] LABS: #Basophils 0.1 thou/uL (0.0-0.2); #Eosinphils 0.4 thou/uL (0.0-0.7); #Lymphocytes 1.2 thou/uL (1.20-3.40); #Monocytes 0.6 thou/uL (0.11-0.59); #Neutrophils 5.6 thou/uL (1.40-6.50); %Basophils 0.9 % (0.0-1.0); %Lymphocytes 14.7 % (21.0-51.0); %Monocytes 7.8 % (0.0-10.0); %Neutrophils 71.5 % (42.0-75.0); Hemoglobin 10.4 g/dL (14.0-18.0); Mean Corpuscular HGB CONC 31.6 g/dL (32.0-36.0); Mean Corpuscular Hemoglobin 25.5 pg (27.0-31.0); Mean Corpuscular Volume 80.7 fL (78.0-98.0); Mean Platelet Volume 7.9 fL (7.4-10.4); Platelet Count 462 thou/uL (130-400); RBC Distribution Width 16.2 % (11.5-14.5); Red Blood Cell (RBC) Count 4.09 mill/uL (4.70-6.10); White Blood Cell (WBC) Count 7.8 thou/uL (4.8-10.8)
[2021-01-14 07:34] VITALS: TEMP 98.2
[2021-01-14 07:47] LABS: ALT (SGPT) Less than 7 U/L (8-55); AST (SGOT) 13 U/L (5-34); Albumin 2.4 g/dL (3.5-5.0); Alkaline Phosphatase 113 U/L (40-110); Anion Gap 12 mmol/L (10-20); BUN (Urea Nitrogen) 13 mg/dL (8.9-20.6); Bilirubin, Total 0.3 mg/dL (0.2-1.2); Calc. Creatinine Clearance 139 mL/min (70-130); Calcium 7.7 mg/dL (7.8-10.44); Carbon Dioxide 23 mmol/L (22-29); Chloride 104 mmol/L (98-107); Globulin 2.7 g/dL (2.4-3.5); Glucose 83 mg/dL (70-105); Potassium 4.4 mmol/L (3.5-5.1); Protein, Total 5.1 g/dL (6.0-8.3); Sodium 135 mmol/L (136-145)
[2021-01-14] MEDS: Sodium Chloride 0.9% 1,000 ML IV SCH (08:09)
[2021-01-14] MEDS ORDERED: Pantoprazole 40 MG VIAL IVP SCH (09:00)
[2021-01-14 14:14] LABS: RBC Folate Test Component 1195 ng/mL (>498)
[2021-01-14 17:49] VITALS: BP 133/96
[2021-01-15 11:38] LABS: Hep C PCR-Quant HCV Not Detected IU/mL (.)
== END 2021-01-14 17:49 | disposition left against medical advice (07) | DRG 439 ==
LOC: ERS 12:19 → EEVIPCON 15:38 → ERHOLD 15:38 → T4-A 19:38
PROVIDERS: ADMIT Family Medicine; ATTEND Family Medicine
PROC: 0W9G3ZZ Drainage of Peritoneal Cavity, Percutaneous Approach (ICD-10-PCS; principal; 2021-01-13)
DX: K85.90 Acute pancreatitis without necrosis or infection, unspecified (principal); R18.8 Other ascites; Z20.822 Contact with and (suspected) exposure to COVID-19; F17.210 Nicotine dependence, cigarettes, uncomplicated; R82.998 Other abnormal findings in urine; F12.10 Cannabis abuse, uncomplicated; Z79.899 Other long term (current) drug therapy; Z80.42 Family history of malignant neoplasm of prostate
CPT/HCPCS: 36415; 36416; 74177; 76705; 80053; 81003; 81015; 82042; 82150; 82274; 82378; 82607; 82728; 82747; 83540; 83550; 83615; 83690; 84157; 84425; 84478; 85025; 85046; 85060; 85610; 85730; 86704; 86705; 86706; 86707; 86709; 86803; 87070; 87086; 87205; 87340; 87389; 87522; 87635; 89051; C9113; J1956; J2270; Q9967; S0028; U0003; U0005